=== PATIENT | female | born 1980 | race Asian ===

== ENCOUNTER 2018-12-02 22:01 | Emergency (ER) | payer BC, OTHER ==
[~2018-12-02] VITALS: Ht 180.3 cm; Wt 105.1 kg
[~2018-12-02 22:01] MED LIST: CLIN300C8 PO; HYDR-3245 PO
--- NOTE | 2018-12-02 22:20 | NUR ---
PT. TO ED WITH C/O HEAVY VB X 4 DAYS; BETTER TODAY THAN THE LAST FEW DAYS(HX OF SAME 5 YEARS AGO). PT. C/O NAUSEA AND ABD CRAMPING. C/O SOB WITH EXERTION. DENIES ANY SIGNIFICANT PMH. CALL LIGHT IN REACH. WARM BLANKET PROVIDED. ANTOLIN WILSON WAS IN TO EVAL PT AND DISCUSS POC. FAMILY AT FOR SUPPORT.
--- NOTE | 2018-12-02 22:33 | NUR ---
PT. OUT OF ROOM FOR US.
--- NOTE | 2018-12-02 23:11 | NUR ---
PT. BACK FROM US. VS UPDATED. AWAITING LAB DRAW.
--- NOTE | 2018-12-02 23:13 | NUR ---
CALLED LAB TO LET THEM KNOW PT. IS BACK IN ROOM AND READY FOR BLOOD DRAW.
--- NOTE | 2018-12-02 23:19 | NUR ---
LAB AT BS NOW.
[2018-12-02 23:30] LABS: BASOPHILS # (AUTO) 0.02 x10^3/uL (0-0.1); BASOPHILS % (AUTO) 0 % (0-1); EOSINOPHILS # (AUTO) 0.23 x10^3/uL (0-0.4); EOSINOPHILS % (AUTO) 4 % (1-7); LYMPHOCYTES # (AUTO) 2.86 x10^3/uL (1-3.4); LYMPHOCYTES % (AUTO) 46 % (22-44); MD NO; MEAN CORPUSCULAR HEMOGLOBIN 29.8 pg (27.0-34.8); MEAN CORPUSCULAR HGB CONC 33.8 g/dL (32.4-35.8); MEAN CORPUSCULAR VOLUME 88.1 fL (80-100); MEAN PLATELET VOLUME 7.7 fL (7.4-10.4); MONOCYTES # (AUTO) 0.38 x10^3/uL (0.2-0.8); MONOCYTES % (AUTO) 6 % (2-9); NEUTROPHILS # (AUTO) 2.78 x10^3/uL (1.8-6.8); NEUTROPHILS % (AUTO) 44 % (42-75); PLATELET COUNT 324 x10^3/uL (130-400); RED BLOOD COUNT 4.11 x10^6/uL (3.82-5.3)
[2018-12-02 23:42] LABS: ALANINE AMINOTRANSFERASE 52 U/L (12-78); ALBUMIN 3.6 g/dL (3.4-5.0); ANION GAP 5 mmol/L (5-15); CALCIUM 8.2 mg/dL (8.5-10.1); CHLORIDE 109 mmol/L (98-107); CREATININE 0.65 mg/dL (0.55-1.02)
[2018-12-02 23:46] LABS: ALKALINE PHOSPHATASE 70 U/L (45-117); BILIRUBIN,TOTAL 0.2 mg/dL (0.2-1.0); TOTAL PROTEIN 7.3 g/dL (6.4-8.2)
[2018-12-02 23:47] LABS: INTERNATIONAL NORMALIZED RATIO 0.9 (0.93-1.1); PROTHROMBIN TIME 9.5 Seconds (9.6-11.5)
--- NOTE | 2018-12-02 23:51 | NUR ---
CHART UP FOR RECHECK BY MARCELA.
[2018-12-03 00:06] VITALS: BP 119/65
== END 2018-12-03 00:15 | disposition home or self-care (01) ==
LOC: ED 12-03 00:08
DX: N93.8 Other specified abnormal uterine and vaginal bleeding (principal); E03.9 Hypothyroidism, unspecified; R06.02 Shortness of breath
CPT/HCPCS: 36415; 76830; 80053; 84702; 85025; 85610; 85730; 86850; 86900; 99284